=== PATIENT | female | born 1990 | race Caucasian/White ===

== ENCOUNTER 2019-01-29 16:48 | Emergency (ER) | payer OTHER ==
[~2019-01-29] VITALS: Ht 165.1 cm; Wt 68.0 kg
== END 2019-01-29 20:11 | disposition home or self-care (01) ==
LOC: ER 16:48
DX: R55 Syncope and collapse (principal)

== ENCOUNTER 2019-03-10 09:30 | Outpatient (CLI) | payer OTHER | END 2019-03-10 09:38 | disposition home or self-care (01) | LOC: SONOGRAMA 09:30 | DX: N60.11 Diffuse cystic mastopathy of right breast (principal); N60.01 Solitary cyst of right breast; N64.4 Mastodynia ==

== ENCOUNTER 2020-03-22 10:00 | Outpatient (CLI) | payer OTHER | END 2020-03-22 10:02 | disposition home or self-care (01) | LOC: SONOGRAMA 10:00 | PROVIDERS: ATTEND Obstetrics & Gynecology | DX: N60.19 Diffuse cystic mastopathy of unspecified breast (principal); N60.09 Solitary cyst of unspecified breast ==